=== PATIENT | female | born 1975 | race African-American/Black ===

== ENCOUNTER 2020-05-01 18:32 | Emergency (ER) | payer MEDICAID ==
[~2020-05-01] VITALS: Ht 162.6 cm; Wt 104.9 kg
--- NOTE | 2020-05-01 19:02 | NUR ---
ASSUMED CARE OF PATIENT. REPORT GIVEN FROM [place] [facility].
[2020-05-01] MEDS ORDERED: SODIUM CHLORIDE FLUSH 10ML SYR IVF ONE (19:30)
[2020-05-01] MEDS ORDERED: ONDANSETRON 2MG/ML, 2ML IVPush ONE (19:30)
[2020-05-01] MEDS ORDERED: HYDROmorphone 1 MG/ML, 1ML INJ IV ONE (19:30)
[2020-05-01 19:56] LABS: BASOPHILS % (AUTO) 1 % (0-1); EOSINOPHILS % (AUTO) 1 % (1-7); LYMPHOCYTES % (AUTO) 18 % (22-44); MEAN CORPUSCULAR HEMOGLOBIN 24.6 pg (27.0-34.8); MONOCYTES % (AUTO) 7 % (2-9); NEUTROPHILS % (AUTO) 74 % (42-75); PLATELET COUNT 341 x10^3/uL (130-400); RED BLOOD COUNT 4.17 x10^6/uL (3.82-5.3); RED CELL DISTRIBUTION WIDTH 14.9 % (9.6-15.2)
[2020-05-01] MEDS ORDERED: HYDROmorphone 1 MG/ML, 1ML INJ ONE (19:57)
[2020-05-01] MEDS ORDERED: ONDANSETRON 2MG/ML, 2ML ONE (19:59)
[2020-05-01] MEDS ORDERED: OMNIPAQUE 350 MG/ML, 100ML BOTTLE ONE (20:00)
[2020-05-01 20:07] LABS: ALBUMIN 2.8 g/dL (3.4-5.0); ANION GAP 5 mmol/L (5-15); CALCIUM 8.3 mg/dL (8.5-10.1); CHLORIDE 112 mmol/L (98-107)
[2020-05-01 20:14] LABS: MD NO
--- NOTE | 2020-05-01 20:40 | NUR ---
PT BACK FROM CT AND RESTING IN ROOM. VS STABLE. ISIDRO CUTE DISTRESS NOTED. CALL LIGHT IN PLACE. WILL CONTINUE TO MONITOR.
[2020-05-01 21:11] LABS: MICROSCOPIC INDICATED
--- NOTE | 2020-05-01 21:48 | NUR ---
PT HAS BEEN UPDATED BY DR GARCÍA. VS STABLE. PT IS A&O X4. NO ACUTE DISTRESS. PT REPORTS SHE CAN TAKE A UBER HOME. PT TO FOLLOW UP WITH HER PRIMARY DOCTOR. PT VERBALIZES DISCHARGED INSTRUCTIONS. PT DISCHARGED PER DR GARCÍA.
[2020-05-01 21:49] VITALS: BP 144/88
== END 2020-05-01 22:00 | disposition home or self-care (01) ==
LOC: ED 19:18
DX: N30.00 Acute cystitis without hematuria (principal); R10.9 Unspecified abdominal pain; R10.30 Lower abdominal pain, unspecified; M79.89 Other specified soft tissue disorders; Z90.710 Acquired absence of both cervix and uterus
CPT/HCPCS: 36415; 74177; 80048; 81001; 82040; 83605; 83880; 85025; 87086; 96374; 96375; 99285; J1170; J2405; Q9967